=== PATIENT | male | born 1970 | race Caucasian/White ===

== ENCOUNTER 2022-04-11 16:59 | Emergency (ER) | payer BC, SELFPAY ==
[2022-04-11 17:19] VITALS: BP 135/87; PULSE 120; RESP 18; TEMP 36.9; O2SAT 98; BMI 26.7
--- NOTE | 2022-04-11 17:23 | HMH.EDUTC ---
[facility] [place] Impression: Yeast infection of the skin Disposition: Home, Self-Care Condition on Discharge: Good Instructions: DI for Yeast Infection-Skin, Nystatin Topical Additional Instructions: Keep the affected area as clean and dry as you can for the next several days. Follow up with your regular doctor. Take the diflucan as directed and apply the topical nystatin as directed. Soak in a warm bath tub of water at least once per day for the next several days. Make sure your dry off thoroughly after you get out. GO TO THE ER FOR ANY WORSENING SYMPTOMS Prescriptions: Fluconazole [Diflucan 150mg tab] 150 mg PO ONCE #1 tab Transmission Status: Received by [facility] #[id number] Nystatin [Nystatin Cr 100,000 Units/GM 30GM] 1 applicatio TP BID 14 Days #1 gm Transmission Status: Received by [facility] #[id number] Referrals: Conner Cid MD [Primary Care Provider] - Time of Disposition: 17:28 Medical Decision Making - Medical Records Medical records reviewed: No: I reviewed the patient's medical records. - Celestine Inquiry Pt receiving controlled substance: No Vital Signs: 04/11/22 17:19 04/11/22 17:31 Temperature 98.5 F 98.5 F Temperature Source Oral Pulse Rate 120 H Pulse Rate [Left Radial] 120 H Respiratory Rate 18 18 Blood Pressure 135/87 Blood Pressure [Right Arm] 135/87 Blood Pressure Mean [Right Arm] 103 02 Sat by Pulse Oximetry 98 - Lab Data Lab results reviewed: Yes: I reviewed the patient's lab results. [facility] [place] - General Stated complaint: PENIS RED AND SWOLLEN Time Seen by Provider: 04/11/22 17:23 Description of Symptoms (Recalled from Triage Doc. by RN): patient comes in for red and swollen penis. patient states that he noticed this morning. HEENT Symptoms (Recalled from RN notes): No Resp Symptoms (Recalled from RN notes): No Skin Symptoms (Recalled from RN notes): Yes MS Symptoms (Recalled from RN notes): No Functional Status (Recalled from RN notes): wnl - History of Present Illness Provider Complaint: He states that for the past 2 days he has had irritation beneath his foreskin on his penis. He states that he has been working outside on these very hot days and sweating a lot. He thinks that this might have irritated him. He denies any dysuria. He denies any pain or other complaints. He is not a diabetic. - Related Data Previous Rx's Medication Instructions Recorded cephALEXin [Keflex 500mg Cap] 500 mg PO Q6H 7 Days #28 cap 01/14/20 Fluconazole [Diflucan 150mg tab] 150 mg PO ONCE #1 tab 04/11/22 Nystatin [Nystatin Cr 100,000 1 applicatio TP BID 14 Days #1 gm 04/11/22 Units/GM 30GM] Allergies Allergy/AdvReac Type Severity Reaction Status Date / Time No Known Allergies Allergy Verified 04/11/22 17:21 - Worker's Comp Is this a Worker's Comp case?: No [facility] History - Hepatitis A Screen Attestation statement:: This patient has been screened for Hepatitis A risk factors. I have reviewed the patient's past medical history: Yes - Social History Smoking Status: Current every day smoker Tobacco Type: cigarettes # Packs/Day (cigarettes): 1 Alcohol Intake: never Occupational Status: other ROS Obtained: Yes All systems reviewed & no additional complaints - Constitutional Constitutional: Denies chills, Denies fever(s) - Eyes Eyes: Denies eye discharge - ENT Ears, Nose, Mouth, and Throat: Denies sore throat - Cardiovascular Cardiovascular: Denies chest pain - Respiratory Respiratory: Denies chest congestion, Denies cough - Gastrointestinal Gastrointestingal: Denies: abdominal pain, cramping, diarrhea, nausea, vomiting - Genitourinary Male Genitourinary: Reports as per HPI - Musculoskeletal Musculoskeletal: Denies joint pain - Integumentary/Breasts Skin/Breast: Reports as per HPI Physical Exam - General General appearance: alert, in no apparent distress - Head Head exam: atrau
[2022-04-11 17:31] VITALS: BP 135/87; PULSE 120; RESP 18; TEMP 36.9
== END 2022-04-11 17:32 | disposition home or self-care (01) ==
PROVIDERS: Emergency Provider Nurse Practitioner Family; PCP Internal Medicine Adolescent Medicine
DX: B37.2 Candidiasis of skin and nail (principal); N48.89 Other specified disorders of penis
CPT/HCPCS: 99212; G0463

== ENCOUNTER 2022-12-09 15:38 | Emergency (ER) | payer BC, SELFPAY ==
[2022-12-09] VITALS (7 sets, daily range): BP systolic 158–202; BP diastolic 86–121; PULSE 89–120; RESP 15–20; TEMP 36.8–36.9; O2SAT 95–98; BMI 25.9
--- NOTE | 2022-12-09 15:48 | CT_ITS ---
PROCEDURE INFORMATION: Exam: CT Head Without Contrast Exam date and time: 12/09/2022 4:10 PM Age: 52 years old Clinical indication: Dizziness TECHNIQUE: Imaging protocol: Computed tomography of the head without contrast. Radiation optimization: All CT scans at this facility use at least one of these dose optimization techniques: automated exposure control; mA and/or kV adjustment per patient size (includes targeted exams where dose is matched to clinical indication); or iterative reconstruction. Other protocol: This patient has received 0 known CTs and 0 known cardiac nuclear medicine studies in the 12 months prior to the current study. COMPARISON: No relevant prior studies available. FINDINGS: Brain: Normal. No hemorrhage. Unremarkable white matter. No mass effect. Cerebral ventricles: No ventriculomegaly. Paranasal sinuses: Right maxillary sinus congestion. Mastoid air cells: Visualized mastoid air cells are well aerated. Bones/joints: Unremarkable. No acute fracture. Soft tissues: Unremarkable. IMPRESSION: No acute intracranial abnormality. Maxillary sinus congestion.
[2022-12-09 15:56] LABS: Basophils # 0.1 K/mm3 (0-0.2); Basophils % 1.8 % (0.1-2.0); Eosinophils # 0.2 K/mm3 (0.0-0.4); Eosinophils % 2.3 % (0.1-12.0); Hematocrit 46.7 % (42.0-52.0); Hemoglobin 15.8 g/dL (14.1-18.0); Lymphocytes # 2.5 K/mm3 (0.7-4.5); Lymphocytes % 33.8 % (10-50); Mean Corpuscular Volume 97.1 fl (80-94); Mean Platelet Volume 8.2 fl (7.4-10.4); Monocytes # 0.5 K/mm3 (0.1-1.0); Monocytes % 6.8 % (1.7-9.3); Neutrophils # 4.1 K/mm3 (1.8-7.8); Neutrophils % 55.2 % (37.0-80.0); Platelet Count 254 K/mm3 (142-424); Red Cell Distribution Width 12.8 % (11.5-17.5); White Blood Count 7.4 K/mm3 (4.8-10.8)
[2022-12-09 16:01] LABS: Chloride 106 mmol/L (98-107); Potassium 4.1 mmoL/L (3.5-5.1); Sodium 141 mmol/L (136-145)
[2022-12-09 16:03] LABS: Blood Urea Nitrogen 13 mg/dl (9-20)
[2022-12-09 16:04] LABS: Alanine Aminotransferase 45 U/L (12-78); Albumin Level 4.3 g/dl (3.5-5.0); Albumin/Globulin Ratio 1.2 (1.1-1.8); Alkaline Phosphatase 103 U/L (38-126); Anion Gap 9.1 mEq/L (5-15); Aspartate Amino Transferase 57 U/L (17-59); Bilirubin,Total 0.3 mg/dl (0.2-1.3); Calcium 9.1 mg/dl (8.4-10.2); Carbon Dioxide 30 mmol/L (22.0-30.0); Creatinine Clearance Estimated 107 mL/min (50-200); Estimated Glomerular Filt Rate 101 ml/min (>60); GFR (African American) 122 ML/MIN (>60); Globulin 3.6 g/dL (1.3-3.2); Glucose 87 mg/dl (74-100); Total Protein,Serum 7.9 g/dl (6.3-8.2)
[2022-12-09 16:14] LABS: Microscopic, Urine URINE MICROSCOPIC (MICROSCOPIC)
--- NOTE | 2022-12-09 16:14 | PC.NURSE ---
PT JUST ARRIVED BACK TO ROOM FROM CT VIA WHEELCHAIR
[2022-12-09 16:18] LABS: Appearance,Urine CLEAR (Clear); Bilirubin,Urine Negative (Negative); Blood, Urine Negative (Negative); Color,Urine YELLOW (Yellow); Glucose,Urine (UA) Negative (Negative); Ketones,Urine Negative (Negative); Leukocyte Esterase,Urine Negative (Negative); Nitrate,Urine Negative (Negative); Protein,Urine Negative (Negative); Specific Gravity, Urine 1.025 (1.005-1.030)
[2022-12-09 16:20] LABS: Troponin I < 0.01 ng/ml (0.00-0.034)
[2022-12-09 16:41] LABS: Squamous Epithelial Cell,Urine Occasional #/hpf (0-5); WBC,Urine Occasional #/hpf (0-3)
--- NOTE | 2022-12-09 16:55 | ECG_ITS ---
APPROVED REPORT Exam: Resting ECG HR:107 bpm ECG Measurements Heart Rate 107 AXES WV 120 P 72 QRSd 105 QRS 73 QT 337 T 72 QTc 400 Conclusion SINUS TACHYCARDIA POSSIBLE LEFT ATRIAL ENLARGEMENT [-0.1mV P-WAVE IN V1/V2] INCOMPLETE RIGHT BUNDLE BRANCH BLOCK [90+ ms QRS DURATION, TERMINAL R IN V1/V2, 40+ ms S IN I/aVL/V4/V5/V6] ABNORMAL RHYTHM ECG UNCONFIRMED REPORT Electronically signed by : Conner Cid MD 12/10/2022 18:53:17
--- NOTE | 2022-12-09 17:01 | PC.NURSE ---
PT STATES NO COMPLAINTS AT THIS TIME, AT BEDSIDE
[2022-12-09 17:05] LABS: Chol/HDL Ratio 3.2 (1-3.5); Cholesterol 167 mg/dl (140-200); HDL Cholesterol 53 mg/dl (40-60); Triglycerides 122 mg/dl (30-150); VLDL Cholesterol 24 mg/dL (0-40)
[2022-12-09 17:16] LABS: Direct LDL Cholesterol 88.79 mg/dL (100-129)
--- NOTE | 2022-12-09 17:16 | HMH.EDGENADL ---
Discharge Plan Disposition Patient Disposition: Left Against Medical Advice Condition: Good Prescriptions Prescriptions: New metoprolol tartrate 50 mg tablet 50 mg PO Q12H Qty: 60 0RF aspirin [Adult Aspirin Regimen] 81 mg tablet,delayed release (DR/EC) 81 mg PO DAILY Qty: 30 0RF Referrals Follow up/Referrals: Zahraa Sheehan MD [Staff Physician] - See instructions Conner Cid MD [Primary Care Provider] - See instructions Clinical Impressions Clinical Impression: Transient ischemic attack, Hypertension Print Language Print Language: Moldovan Discharge ED Provider: Eddie Rodríguez General Adult HPI General Chief complaint: Dizziness Stated complaint: weakness Time Seen by Provider: 12/09/22 17:23 Mode of Arrival: EMS Source of Information: Patient Limitations: No Limitations Description of Symptoms (Recalled from ER Triage Doc. by RN): Pt by EMS called by who reports he was acting dizzy like he was going to fall off the porch ; pt denies c/o and doesn't have PCP; hypertensive en route 210/121, NAD, GCS15 History of Present Illness HPI narrative: Patient presents to the emergency department after he was reportedly at home and was sitting on the stairs of his front patio when his noticed that he had slurred speech and right-sided facial droop which happened just prior to arrival. The states that this has completely resolved. She states that he was slightly confused for short period of time. Denies any previous history of CVA or seizure activity. Patient states that he does not go to a physician and is not on any medication at this time. Denies any recent fever, chills, cough, congestion, nausea or vomiting. Related Data Previous Rx's Medication Instructions Recorded aspirin 81 mg tablet,delayed 81 mg PO DAILY #30 tabs 12/09/22 release (Adult Aspirin Regimen) metoprolol tartrate 50 mg tablet 50 mg PO Q12H #60 tabs 12/09/22 Allergies Allergy/AdvReac Type Severity Reaction Status Date / Time No Known Allergies Allergy Verified 04/11/22 17:[address] [facility] Disclaimer: The information contained in this section may have been updated after the patient was seen, as this information can be updated by other users. Social History Smoking Status: Current every day smoker tobacco type: cigarettes packs per day: 1 alcohol intake: never current occupational status: other Travel in the last 8 weeks: None ROS Obtained: Yes All systems reviewed & no additional complaints except as documented Neurologic Neurologic: Reports other (Slurred speech, right-sided facial droop) Physical Exam General General appearance: alert and in no apparent distress Comment: Chronically ill-appearing Head Head exam: atraumatic and normocephalic Eye Eye exam: Present normal appearance, PERRL and EOMI Respiratory Respiratory exam: Present normal lung sounds bilaterally and other (Coarse diminished bilateral breath sounds) Cardiovascular Cardiovascular exam: Present tachycardia and normal heart sounds Abdominal Exam Abdominal exam: Present soft and diminished bowel sounds Extremities Exam Extremities exam: Present normal inspection and full ROM Neurological Exam Neurological exam: Present alert, oriented X3 and CN II-XII intact Psychiatric Psychiatric exam: Present normal affect and normal mood Skin Skin exam: Present warm, dry and intact Medical Decision Making Celestine Inquiry Pt receiving controlled substance: No Celestine was queried for this patient: No Vital Signs: 12/09/22 15:41 12/09/22 15:47 12/09/22 16:30 Temperature 98.5 F Temperature Source Oral Pulse Rate 89 105 H Pulse Rate [Right Radial] 120 H Respiratory Rate 18 19 20 Blood Pressure 173/86 H 173/86 H Blood Pressure [Right Arm] 202/121 H Blood Pressure Mean 118 Blood Pressure Mean [Right Arm] 148 Blood Pressure Source [Right Arm] Automatic Cuff Blood
== END 2022-12-09 17:42 | disposition left against medical advice (07) ==
PROVIDERS: Emergency Provider Emergency Medicine; PCP Internal Medicine Adolescent Medicine
DX: G45.9 Transient cerebral ischemic attack, unspecified (principal); I10 Essential (primary) hypertension; F17.210 Nicotine dependence, cigarettes, uncomplicated
CPT/HCPCS: 70450; 80053; 80061; 81001; 84484; 85025; 93005; 99285

== ENCOUNTER 2022-12-09 21:17 | Emergency (ER) | payer BC, SELFPAY ==
[2022-12-09 21:20] VITALS: BP 218/131; PULSE 85; RESP 19; TEMP 36.8; O2SAT 98; BMI 23.8
[2022-12-09 21:42] VITALS: BP 210/122; PULSE 81; RESP 19; O2SAT 97
--- NOTE | 2022-12-09 21:51 | CT_ITS ---
PROCEDURE INFORMATION: Exam: CTA Head With Contrast, Arteriography Exam date and time: 12/09/2022 10:43 PM Age: 52 years old Clinical indication: Stroke-like symptoms; Altered mental status/memory loss; Additional info: Stroke work up TECHNIQUE: Imaging protocol: Computed tomographic angiography of the head with contrast. Exam focused on the arteries. 3D rendering (Not supervised by radiologist): MIP and/or 3D reconstructed images were created by the technologist. Radiation optimization: All CT scans at this facility use at least one of these dose optimization techniques: automated exposure control; mA and/or kV adjustment per patient size (includes targeted exams where dose is matched to clinical indication); or iterative reconstruction. Contrast material: ISOVUE; Contrast volume: 100 ml; Contrast route: INTRAVENOUS (IV); Other protocol: This patient has received 2 known CTs and 0 known cardiac nuclear medicine studies in the 12 months prior to the current study. COMPARISON: CT HEAD/BRAIN WO CON 12/09/2022 4:10 PM FINDINGS: ANTERIOR CIRCULATION: Right internal carotid artery: Gradual reconstitution of the right sided internal carotid artery with good distal flow. Moderate atherosclerotic disease of the right sided cavernous internal carotid artery the results in stenosis measuring 70%. There is distal flow. Right middle cerebral artery: No occlusion or significant stenosis. No aneurysm. Right anterior cerebral artery: No occlusion or significant stenosis. No aneurysm. Left internal carotid artery: Intracranial segment is patent with no significant stenosis. No aneurysm. Left middle cerebral artery: No occlusion or significant stenosis. No aneurysm. Left anterior cerebral artery: No occlusion or significant stenosis. No aneurysm. POSTERIOR CIRCULATION: Right vertebral artery: No occlusion or significant stenosis. No aneurysm. Left vertebral artery: No occlusion or significant stenosis. No aneurysm. Basilar artery: No occlusion or significant stenosis. No aneurysm. Right posterior cerebral artery: No occlusion or significant stenosis. No aneurysm. Left posterior cerebral artery: No occlusion or significant stenosis. No aneurysm. Brain: No definite mass, mass effect, or midline shift. Cerebral ventricles: No ventriculomegaly. Bones/joints: Unremarkable. No acute fracture. Soft tissues: Unremarkable. IMPRESSION: 1. Gradual reconstitution of the right sided internal carotid artery with good distal flow. This is secondary to a severe stenosis in the neck. 2. Moderate atherosclerotic disease of the right sided cavernous internal carotid artery the results in stenosis measuring 70%. There is distal flow. 3. The remainder of the vascular structures are unremarkable. There is no other significant stenosis. There is no occlusion or aneurysm.
--- NOTE | 2022-12-09 21:51 | CT_ITS ---
PROCEDURE INFORMATION: Exam: CTA Neck With Contrast Exam date and time: 12/09/2022 10:43 PM Age: 52 years old Clinical indication: Stroke-like symptoms; Altered mental status/memory loss; Additional info: Stroke work up TECHNIQUE: Imaging protocol: Computed tomographic angiography of the neck with contrast. 3D rendering (Not supervised by radiologist): MIP and/or 3D reconstructed images were created by the technologist. Radiation optimization: All CT scans at this facility use at least one of these dose optimization techniques: automated exposure control; mA and/or kV adjustment per patient size (includes targeted exams where dose is matched to clinical indication); or iterative reconstruction. Contrast material: ISOVUE; Contrast volume: 100 ml; Contrast route: INTRAVENOUS (IV); Other protocol: This patient has received 2 known CTs and 0 known cardiac nuclear medicine studies in the 12 months prior to the current study. COMPARISON: CT HEAD/BRAIN WO CON 12/09/2022 4:10 PM FINDINGS: Right common carotid artery: No stenosis. No dissection or occlusion. Right internal carotid artery: Severe atherosclerotic disease of the right sided internal carotid artery bulb the results in near occlusion. There is trace distal flow. Right external carotid artery: No occlusion or stenosis of the origin. Left common carotid artery: No stenosis. No dissection or occlusion. Left internal carotid artery: Moderate atherosclerotic disease within left-sided internal carotid artery bulb that results in stenosis measuring 50%. There is good distal flow. Left external carotid artery: No occlusion or stenosis of the origin. 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 There is trace distal reconstitution. Left vertebral artery: No stenosis. No dissection or occlusion. Soft tissues: Normal. No significant soft tissue swelling. Bones/joints: No acute fracture. IMPRESSION: 1. 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 There is trace distal reconstitution. 2. Severe atherosclerotic disease of the right sided internal carotid artery bulb the results in near occlusion. There is trace distal flow. 3. Moderate atherosclerotic disease within left-sided internal carotid artery bulb that results in stenosis measuring 50%. There is good distal flow. 4. The remainder of the vascular structures are unremarkable. There is no other significant stenosis. There is no occlusion or aneurysm. REFERENCES: NASCET CRITERIA. The degree of stenosis in the cervical segment of the internal carotid artery is based on NASCET criteria. Normal is no stenosis. Mild is less than 50% stenosis. Moderate is 50-69% stenosis. Severe is 70% to 99% stenosis. Total occlusion is no detectable patent lumen.
--- NOTE | 2022-12-09 21:52 | PC.NURSE ---
notified ER MD of pt bp and about previous ER Visit today, gave verbal orders on pt
[2022-12-09 22:00] VITALS: BP 200/117; PULSE 80; O2SAT 97
[2022-12-09 22:30] VITALS: BP 190/114; PULSE 79; O2SAT 97
--- NOTE | 2022-12-09 22:34 | PC.NURSE ---
Rounded on patient, no needs at this time.
[2022-12-09 23:00] VITALS: BP 207/114; PULSE 80; O2SAT 97
--- NOTE | 2022-12-09 23:06 | PC.NURSE ---
spoke with ANGELICA
[2022-12-09 23:30] VITALS: BP 194/114; PULSE 79; O2SAT 97
[2022-12-10] VITALS: BP 189/109; PULSE 73; O2SAT 97
--- NOTE | 2022-12-10 00:01 | PC.NURSE ---
Rounded on patient , patient voiced no concerns at this time.
[2022-12-10 00:30] VITALS: BP 188/116; PULSE 75; O2SAT 95
--- NOTE | 2022-12-10 00:43 | HMH.EDGENADL ---
Discharge Plan Disposition Patient Disposition: Home, Self-Care Prescriptions Prescriptions: No Action aspirin [Adult Aspirin Regimen] 81 mg tablet,delayed release (DR/EC) 81 mg PO DAILY metoprolol tartrate 50 mg tablet 50 mg PO Q12H Referrals Follow up/Referrals: Conner Cid MD [Primary Care Provider] - See instructions Activity Restrictions/Add. Instructions Additional Instructions/Restrictions: See Dr. Becerra at 9:00am (saturday) for follow up. Clinical Impressions Clinical Impression: Transient ischemic attack, Hypertension, Vascular disease Instructions Patient Instructions: DI for Malignant Hypertension Discharge ED Provider: Mynor (ED)Micheal General Adult HPI General Chief complaint: PAIN Stated complaint: pin stroke earlier ER visit Time Seen by Provider: 12/09/22 23:00 Mode of Arrival: Ambulatory Source of Information: Patient Limitations: No Limitations Description of Symptoms (Recalled from ER Triage Doc. by RN): 52 M was seen here at this ER earlier and left AMA. Patient reports he has changed his mind and would like to be admitted like he was going to be earlier. Patient has no new complaints. History of Present Illness HPI narrative: pt in the ed earlier with possible tia and left ama - pt with no sx at this time and at baseline Onset (ago): hour(s) Related Data Home Medications Medication Instructions Recorded Confirmed aspirin 81 mg tablet,delayed 81 mg PO DAILY Heart 12/09/22 12/09/22 release (Adult Aspirin Regimen) metoprolol tartrate 50 mg tablet 50 mg PO Q12H High blood pressure 12/09/22 12/09/22 Allergies Allergy/AdvReac Type Severity Reaction Status Date / Time No Known Allergies Allergy Verified 04/11/22 17:21 [facility] Disclaimer: The information contained in this section may have been updated after the patient was seen, as this information can be updated by other users. Social History Smoking Status: Current every day smoker tobacco type: cigarettes packs per day: 1 alcohol intake: never current occupational status: other Travel in the last 8 weeks: None ROS Obtained: Yes All systems reviewed & no additional complaints except as documented Physical Exam General General appearance: alert Head Head exam: normocephalic Eye Eye exam: Present PERRL and EOMI ENT ENT exam: Present mucous membranes moist Neck Neck exam: Present trachea midline and other (no def bruit) Respiratory Respiratory exam: Absent respiratory distress Cardiovascular Cardiovascular exam: Present regular rate and systolic murmur Abdominal Exam Abdominal exam: Present soft Extremities Exam Extremities exam: Present full ROM Neurological Exam Neurological exam: Present alert, oriented X3 and CN II-XII intact; Absent motor sensory deficit Psychiatric Psychiatric exam: Present normal affect Skin Skin exam: Absent rash Medical Decision Making Medical Records Medical records reviewed: Yes I reviewed the patient's medical records. Celestine Inquiry Pt receiving controlled substance: No Vital Signs: 12/09/22 21:20 12/09/22 21:42 12/10/22 00:52 Temperature 98.3 F Temperature Source Oral Pulse Rate 81 Pulse Rate [Left] 85 Respiratory Rate 19 19 Blood Pressure 210/122 H 210/110 H Blood Pressure [Right Arm] 218/131 H Blood Pressure Mean [Right Arm] 160 Blood Pressure Source Manual Cuff/ Auscultation Manual Cuff/ Auscultation Blood Pressure Source [Right Arm] Automatic Cuff Blood Pressure Position Sitting Sitting Blood Pressure Position [Right Arm] Sitting 02 Sat by Pulse Oximetry 98 97 Oxygen Delivery Method Room Air Room Air Lab Data Lab results reviewed: Yes I reviewed the patient's lab results. Orders (Tests/Meds): ED MEDICATIONS Generic Name Dose Route Start Last Admin Trade Name Freq PRN Reason Stop Dose Admin Sodium Chloride 10 ml 12/09/22 21:51 Sodium
--- NOTE | 2022-12-10 00:51 | PC.NURSE ---
Elevated BP reported to . Verbal orders for 0.1mg clonidine PO at this time.
[2022-12-10 00:52] VITALS: BP 210/110
[2022-12-10 01:00] VITALS: BP 197/113; PULSE 70; O2SAT 97
[2022-12-10 01:22] VITALS: BP 181/110; PULSE 68; RESP 16; TEMP 36.8; O2SAT 98
== END 2022-12-10 01:22 | disposition home or self-care (01) ==
PROVIDERS: Emergency Provider Emergency Medicine; PCP Internal Medicine Adolescent Medicine
DX: G45.9 Transient cerebral ischemic attack, unspecified (principal); I73.9 Peripheral vascular disease, unspecified; I10 Essential (primary) hypertension; F17.210 Nicotine dependence, cigarettes, uncomplicated
CPT/HCPCS: 70496; 70498; 93005; 99285; Q9967

== ENCOUNTER → 2023-01-17 06:21 | Outpatient (CLI) | payer BC, SELFPAY ==
--- NOTE | 2023-01-17 06:22 | CA_ITS ---
APPROVED REPORT EXAM: Comprehensive 2D, Doppler, and color-flow Echocardiogram [employer]: Tonia Mulligan CRT Ht: 5 ft 5 in Wt: 139lbs BSA: 1.70 BP: 145/81 mmHg Indications: Hyperlipidemia, Hypertension/HDD, TIA hx, smoker 2D Dimensions LVOT 1.79 cm (M/F) 1.5-2.5 LA Volume 36.70 mL LA Volume Index 21.10 mL/m2 (M/F) 16-34 M-Mode Dimensions RVDd 2.31 cm (0.9-2.6) LA Diam 3.44 cm (1.9-4.0) LVDd 4.66 cm (3.5-5.7) Ao Diam 3.80 cm (2.0-3.7) LVDs 3.31 cm (3.5-5.7) IVSd 1.06 cm (0.6-1.1) PWd 0.44 cm (0.6-1.1) EF (Teich) 55.60% FS 29.00% EDV (Teich) 100.30 mL TAPSE 1.33 (<1.7) ESV (Teich) 44.50 mL LV Diastology E Decel Time 183.00 (160-240 msec) E/A Ratio 0.81 MED E' 7.30 (< 7 cm/sec) MED A' 8.00 cm/s E'/MED E' Ratio 10.47 (>14) LAT E' 6.70 (<10 cm/sec) LAT A' 8.80 cm/s E/LAT E' Ratio 11.40 (>14) Aortic Valve AO Peak GR. 5.90 mmHg Mitral Valve MV A Velocity 95.00 (40-130 cm/s) E/A Ratio 0.81 MV Decel. Time 183.00 (160-240 ms) Pulmonary Valve PV Peak Velocity 123.00 (50-150 cm/s) Tricuspid Valve TR P. Velocity 193.00 cm/s RAP Estimate 10.00 mmHg RVSP 25.00 mmHg Left Ventricle Left atrium is mildly enlarged, left ventricle is normal size mild concentric left ventricular hypertrophy, estimated ejection fraction 55% with no regional wall motion abnormality, grade 1 diastolic dysfunction seen without tissue Doppler evidence of raise left atrial pressure. Right Ventricle Right atrium and right ventricular normal size and contractility. Aortic Valve Aortic valve is minimally thickened fibrosed there is no aortic stenosis aortic insufficiency. Mitral Valve Mitral valve is grossly normal, there is trace mitral regurgitation. Tricuspid Valve Tricuspid grossly normal, there is trace tricuspid regurgitation, tricuspid regurgitation jet velocity is inadequate for calculation of the right ventricular systolic pressure. Pulmonic Valve Pulmonic valve is poorly visualized. Great Vessels Aortic root normal size. Inferior vena cava is normal size with normal inspiratory collapse. Pericardium No significant pericardial effusion noted. Conclusion 1. Normal left ventricular size, mild concentric left ventricular hypertrophy, estimated ejection fraction 55% with no regional wall motion abnormality, grade 1 diastolic dysfunction seen without tissue Doppler evidence of raised left atrial pressure. 2. Trace mitral and tricuspid regurgitation. 3. No significant pericardial effusion noted. 4. Inferior vena cava is normal size with normal inspiratory collapse. Electronically signed by : Sen Rainey MD 01/17/2023 17:37:01
--- NOTE | 2023-01-17 06:22 | CA_ITS ---
FINAL REPORT TECHNIQUE: Grayscale, color Doppler and duplex Doppler ultrasound of the kidneys, aorta and renal arteries was performed. Multiple velocities were measured. CLINICAL HISTORY: HTN,SMOKER COMPARISON: None FINDINGS: Aorta velocity: 46 cm/sec Right kidney: 11.4 cm. No evidence of hydronephrosis or mass. Right intrarenal RI: 0.55-0.66 Right renal artery velocity: 252 cm/sec. Right RAR (Renal artery-Aortic Ratio): 5.45 Left Kidney: 10.1 cm. No evidence of hydronephrosis or mass. Left intrarenal RI: 0.39-0.65 Left renal artery velocity: 259 cm/sec. Left RAR (Renal Artery-Aortic Ratio): 5.61 IMPRESSION: Greater than 60% stenosis of the bilateral renal arteries. CT angiogram or postcontrast MR angiogram would be more sensitive for evaluation of possible renal artery stenosis. Reviewed, Interpreted and Dictated by Trisha Etienne MD Transcribed by Jenny Quinonez Authenticated and [facility]
--- NOTE | 2023-01-17 06:22 | CA_ITS ---
APPROVED REPORT Exam: Pharmacologic Technologist: Verena Zamora, Ht: 5 ft 5 in Wt: 139 lbs BSA: 1.70 m2 HR: 67 bpm BP: 173/95 mmHg Medical History Medications: Aspirin,,,,, Metoprolol Tartrate,,,,, Atorvastastin,,,,, Stress Test Details Test: LEXISCAN HR Resting HR: 73 bpm Max Heart Rate (APMHR): 167.329012 bpm Max HR Achieved: 108 bpm Target HR (85% APMHR): 141.271529 bpm % of APMHR: 64.67 Recovery HR: 95 bpm BP Resting BP: 173/95 mmHg Max BP: 178/104 mmHg Recovery BP: 175.0/113.0 mmHg ECG Resting ECG: NSR, normal early repolarization changes Clinical Exercise duration: 04:01 min Highest Stage Achieved: Exercise capacity: 1.0 METs Stress ECG Conclusion Symptoms: stomach pain, nausea, leg discomfort. No CP. Arrhythmias/Ectopy: None ST-T Changes: No significant changes. Conclusion: Non-disgnostic Lexiscan stress. Myoview images reported separately. Pt advised to monitor BP at home & contact Dr. Hernan clarke if stays elevated. Test Summary REST . . . . . . . Resting REST 05:05 . . 73 . 173/ 95 . . Stage 1 01:00 . . 103 . . . . Stage 2 01:00 . . 105 . 165/ 96 . . Stage 3 01:00 . . 103 . 151/ 96 . . Stage 4 01:00 . . 98 . 172/ 95 . . Stage 4 01:01 . . 98 . 172/ 95 . Stop exercise at 04:01 RECOVERY 01:00 . . 94 . . . . RECOVERY 02:00 . . 96 . 178/104 . . RECOVERY 03:00 . . 96 . 178/104 . . RECOVERY 04:00 . . 95 . 175/113 . . RECOVERY 05:00 . . 96 . 175/113 . . RECOVERY 05:13 . . 92 . 175/113 . . Electronically signed by : Sen Rainey MD 01/17/2023 16:46:16
--- NOTE | 2023-01-17 06:22 | NM_ITS ---
APPROVED REPORT Exam: Nuclear Stress Test Indication: HTN..current smoker Patient Location: Outpatient Stress Tech: Verena Akbar [place] Tech:Talia Armando CAPRICERuben RT(R)(N) Ht: 5 ft 5 in Wt: 156 lbs HR: 73 bpm BP: 173/95 mmHg BSA: 1.78 m2 TID: 1.06 BMI: 25.9 History: HTN..current smoker Procedure: Patient received 0.4 mg of intravenous Lexiscan, resting heart rate 73 bpm, resting blood pressure 173/95 mmHg, with Lexiscan maximum heart rate achieved was 108 bpm which is Less than 85 % of the maximum predicted heart rate and blood pressure was 178/104 mmHg. With Lexiscan, patient denied any complaint of chest pain. Electrocardiogram Resting electrocardiogram showed sinus rhythm, with Lexiscan there is less than 1.[address] segment depression noted from the baseline EKG. The EKG portion of the Lexiscan is nondiagnostic. Cardiac Stress and Resting SPECT Images: Cardiac Stress and Resting SPECT images were obtained using technetium 99m Myoview 31.6 mCi stress and 10.63 mCi at rest. Gated SPECT analysis of segmental wall motion and calculation of the ejection fraction also done. Prone images were also obtained. Cardiac stress and rest respectively show uniform myocardial activity without segmental perfusion abnormality, computer derived ejection fraction is 44% with no regional wall motion abnormality. Conclusion: 1. The EKG portion of the Lexiscan is nondiagnostic. 2. No scintigraphic evidence of reversible ischemia seen, computer derived ejection fraction 44% with no regional wall motion abnormality, right ventricle is normal size and contractility. 3. Normal myocardial perfusion imaging except for low ejection fraction of 44%. Electronically signed by : Sen Rainey MD 01/17/2023 16:59:58
--- NOTE | 2023-01-17 06:22 | CT_ITS ---
FINAL REPORT TECHNIQUE: Axial CT images of the chest were obtained without contrast. Low-dose protocol was utilized. This study was performed with techniques to keep radiation doses as low as reasonably achievable (ALARA). Individualized dose reduction techniques using automated exposure control or adjustment of mA and/or kV according to the patient's size were employed. CLINICAL HISTORY: lung cancer screening cuurent smoker 1/2ppd x 35 years COMPARISON: None FINDINGS: CT CHEST WITHOUT, LOW DOSE SCREENING CT Di Vol: 2.90 mGy DLP: 107.33 mGy*cm There is no axillary, mediastinal, or hilar adenopathy. The heart size is normal. There are prominent coronary artery calcifications. There is no pleural or pericardial effusion. The lung windows show no suspicious mass or nodule. The lungs are clear. Limited images of the upper abdomen demonstrate . IMPRESSION: LR Category 1S: 12 month follow-up low-dose chest CT is recommended. Modifier S: Prominent coronary artery calcifications. Reviewed, Interpreted and Dictated by Trisha Etienne MD Transcribed by Jenny Quinonez Authenticated and [facility]
== END ==
PROVIDERS: PCP Internal Medicine Adolescent Medicine; Visit Provider Internal Medicine
DX: I10 Essential (primary) hypertension (principal); R09.89 Other specified symptoms and signs involving the circulatory and respiratory systems; G45.9 Transient cerebral ischemic attack, unspecified; I65.23 Occlusion and stenosis of bilateral carotid arteries; I99.9 Unspecified disorder of circulatory system; E78.5 Hyperlipidemia, unspecified; Z86.73 Personal history of transient ischemic attack (TIA), and cerebral infarction without residual deficits; Z72.0 Tobacco use
CPT/HCPCS: 71271; 78452; 93017; 93306; 93976; A9502; J2785

== ENCOUNTER 2023-01-25 08:18 | Day surgery (SDC) | payer BC, OTHER, SELFPAY ==
[2023-01-25] VITALS (12 sets, daily range): BP systolic 151–207; BP diastolic 94–127; PULSE 77–89; RESP 16–20; O2SAT 95–100; BMI 23.3
--- NOTE | 2023-01-25 07:03 | IR_ITS ---
APPROVED REPORT Patient Location: Outpatient Conference Translator: CRISTOBAL El RT (R) PROCEDURES Bilateral selective renal angiography Bare-metal stent deployment to the proximal right renal artery Bare-metal stent deployment to the ostial proximal left renal artery INDICATION Bilateral renal artery stenosis, Abnormal renal duplex diagnosing bilateral severe renal artery stenosis, Renovascular hypertension Informed consent was obtained prior to the procedure. COMPLICATIONS None Estimated Blood Loss: Less than 10 mls TECHNIQUE One percent lidocaine used to anesthetize the right anterior aspect of the wrist. The right radial artery was accessed via the Seldinger technique. A 6 Bahraini sheath was placed in the right radial artery. 150 mg magnesium sulfate, 800 mcg of nitroglycerin, 1mg Lidocaine and 5000 U Heparin were given through the arterial sheath. A JR4 guide catheter was used to intubate each renal artery and perform selective angiography. At the end the diagnostic angiogram therapeutic heparin was administered giving a therapeutic ACT and a guide catheter was placed in the right renal artery followed by Choice PT extra-support wire. A 7 mm x 15 mm Herculink stent was deployed at 16 and then 24 alejandro reducing the severe stenosis to 0%. Poststenotic dilatation was present however the stent was not further dilated. The guide catheter was then placed in the inferior branch of the left renal artery and a Choice PT extra-support wire was placed distally. A 6 mm x 15 mm Herculink stent was deployed at 20 alejandro reducing the stenosis. A 7 mm x 15 mm balloon from the previous Herculink was then advanced and deployed at 20 alejandro to post dilate. Excellent angiograph results were obtained. At the end of the procedure the apparatus was removed the sheath was removed good hemostasis was achieved using TR banding patient was transferred to the postop putting in stable condition ANGIOGRAPHIC RESULTS Right renal artery singular and has a proximal eccentric 70% stenosis Left renal artery has a dual arterial supply. The superior branch which supplies 30% of the kidneys is normal while the inferior branch which supplies 70% of the kidney has an ostial 80% concentric stenosis IMPRESSION Severe bilateral renal artery stenosis Successful percutaneous revascularization of the renal arteries as described above hemodynamically severe disease reduced to 0% with 2 bare-metal balloon mounted stents PLAN 1. Dual antiplatelet therapy for 1 month 2. Percocet 10 mg 1 p.o. every 8 hours as needed for discomfort. #12 will be dispensed 3. Tobacco cessation 4. Risk factor modification Electronically signed by : Cole Becerra MD 01/25/2023 12:46:40
[2023-01-25 08:54] LABS: MANUAL DIFFERENTIAL MANUAL DIFFERENTIAL (MANUAL DIFF)
[2023-01-25 08:56] LABS: Basophils # 0.1 K/mm3 (0-0.2); Eosinophils # 0.2 K/mm3 (0.0-0.4); Eosinophils % 3.3 % (0.1-12.0); Hematocrit 45.5 % (42.0-52.0); Hemoglobin 14.9 g/dL (14.1-18.0); Lymphocytes # 1.5 K/mm3 (0.7-4.5); Mean Corpuscular HGB Conc 32.7 g/dL (31.8-35.4); Mean Corpuscular Hemoglobin 32.4 pg (27.0-31.2); Mean Platelet Volume 8.2 fl (7.4-10.4); Monocytes # 0.5 K/mm3 (0.1-1.0); Monocytes % 8.8 % (1.7-9.3); Neutrophils # 3.8 K/mm3 (1.8-7.8); Platelet Count 219 K/mm3 (142-424); Red Blood Count 4.59 M/mm3 (4.60-6.20); Red Cell Distribution Width 12.6 % (11.5-17.5); White Blood Count 6.1 K/mm3 (4.8-10.8)
[2023-01-25 08:58] LABS: Chloride 103 mmol/L (98-107); Sodium 138 mmol/L (136-145)
[2023-01-25 08:59] LABS: Potassium 4.1 mmoL/L (3.5-5.1)
[2023-01-25 09:02] LABS: Anion Gap 12.1 mEq/L (5-15); Blood Urea Nitrogen 10 mg/dl (9-20); Calcium 8.5 mg/dl (8.4-10.2); Carbon Dioxide 27 mmol/L (22.0-30.0); Creatinine Clearance Estimated 96 mL/min (50-200); Estimated Glomerular Filt Rate 101 ml/min (>60); GFR (African American) 122 ML/MIN (>60); Glucose 96 mg/dl (74-100)
[2023-01-25 09:32] LABS: Lymphocytes % 28 % (10-50); Monocytes % 10 % (2-9); Neutrophils % 62 % (42-76); Platelet Estimate Normal; RBC Morphology Normal; Total Cells Counted 100
[2023-01-25 13:36] LABS: CATHL Activated Clotting Time 383 SEC (74-125)
--- NOTE | 2023-01-25 15:19 | P.CONPHA_ITS ---
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
== END 2023-01-25 15:37 | disposition home or self-care (01) ==
PROVIDERS: PCP Internal Medicine Adolescent Medicine; Visit Provider Internal Medicine
DX: I70.1 Atherosclerosis of renal artery (principal); F17.210 Nicotine dependence, cigarettes, uncomplicated; I77.1 Stricture of artery; I15.0 Renovascular hypertension; I10 Essential (primary) hypertension; I65.23 Occlusion and stenosis of bilateral carotid arteries
CPT/HCPCS: 37236; 37237; 80048; 85007; 85014; 85018; 85048; 85049; 85347; 99152; 99153; C1725; C1769; C1876; J1644; Q9967

== ENCOUNTER → 2023-01-30 13:45 | Outpatient (CLI) | payer BC, OTHER, SELFPAY ==
[2023-01-30 14:43] LABS: Basophils # 0.1 K/mm3 (0-0.2); Basophils % 0.9 % (0.1-2.0); Eosinophils # 0.2 K/mm3 (0.0-0.4); Eosinophils % 3.3 % (0.1-12.0); Hematocrit 44.8 % (42.0-52.0); Hemoglobin 14.7 g/dL (14.1-18.0); Lymphocytes # 1.8 K/mm3 (0.7-4.5); Lymphocytes % 31.4 % (10-50); Mean Corpuscular HGB Conc 32.7 g/dL (31.8-35.4); Mean Corpuscular Hemoglobin 32.4 pg (27.0-31.2); Mean Platelet Volume 8.1 fl (7.4-10.4); Monocytes # 0.7 K/mm3 (0.1-1.0); Monocytes % 11.8 % (1.7-9.3); Neutrophils # 3.1 K/mm3 (1.8-7.8); Neutrophils % 52.7 % (37.0-80.0); Platelet Count 224 K/mm3 (142-424); Red Blood Count 4.53 M/mm3 (4.60-6.20); Red Cell Distribution Width 12.5 % (11.5-17.5); White Blood Count 5.9 K/mm3 (4.8-10.8)
[2023-01-30 15:17] LABS: Anion Gap 7.6 mEq/L (5-15); Blood Urea Nitrogen 14 mg/dl (9-20); Calcium 8.9 mg/dl (8.4-10.2); Carbon Dioxide 29 mmol/L (22.0-30.0); Chloride 101 mmol/L (98-107); Estimated Glomerular Filt Rate 118 ml/min (>60); GFR (African American) 143 ML/MIN (>60); Glucose 92 mg/dl (74-100); Potassium 4.6 mmoL/L (3.5-5.1); Sodium 133 mmol/L (136-145)
== END ==
PROVIDERS: PCP Internal Medicine Adolescent Medicine; Visit Provider Internal Medicine
DX: Z96.0 Presence of urogenital implants (principal)
CPT/HCPCS: 36415; 80048; 85025

== ENCOUNTER → 2023-02-20 09:16 | Outpatient (CLI) | payer BC, OTHER, SELFPAY ==
[2023-02-20 10:38] LABS: Chloride 97 mmol/L (98-107); Potassium 4.3 mmoL/L (3.5-5.1); Sodium 137 mmol/L (136-145)
[2023-02-20 10:41] LABS: Anion Gap 13.3 mEq/L (5-15); Blood Urea Nitrogen 5 mg/dl (9-20); Calcium 8.7 mg/dl (8.4-10.2); Carbon Dioxide 31 mmol/L (22.0-30.0); Estimated Glomerular Filt Rate 118 ml/min (>60); GFR (African American) 143 ML/MIN (>60); Glucose 78 mg/dl (74-100)
== END ==
PROVIDERS: PCP Internal Medicine Adolescent Medicine; Visit Provider Physician Assistant
DX: E78.5 Hyperlipidemia, unspecified (principal); I70.1 Atherosclerosis of renal artery; Z72.0 Tobacco use
CPT/HCPCS: 36415; 80048

== ENCOUNTER → 2023-08-08 10:19 | Outpatient (CLI) | payer BC, OTHER, SELFPAY ==
[2023-08-08 10:42] LABS: Basophils # 0.1 K/mm3 (0-0.2); Eosinophils # 0.2 K/mm3 (0.0-0.4); Eosinophils % 3.9 % (0.1-12.0); Hematocrit 47.8 % (42.0-52.0); Hemoglobin 16.4 g/dL (14.1-18.0); Lymphocytes # 2.1 K/mm3 (0.7-4.5); Mean Corpuscular HGB Conc 34.4 g/dL (31.8-35.4); Mean Corpuscular Hemoglobin 34.9 pg (27.0-31.2); Mean Corpuscular Volume 101.5 fl (80-94); Mean Platelet Volume 7.9 fl (7.4-10.4); Monocytes # 0.4 K/mm3 (0.1-1.0); Neutrophils # 2.5 K/mm3 (1.8-7.8); Neutrophils % 47.2 % (37.0-80.0); Platelet Count 187 K/mm3 (142-424); Red Blood Count 4.71 M/mm3 (4.60-6.20); Red Cell Distribution Width 12.8 % (11.5-17.5); White Blood Count 5.3 K/mm3 (4.8-10.8)
[2023-08-08 12:19] LABS: Alanine Aminotransferase 76 U/L (12-78); Albumin Level 4.7 g/dl (3.5-5.0); Alkaline Phosphatase 90 U/L (38-126); Anion Gap 13.6 mEq/L (5-15); Aspartate Amino Transferase 81 U/L (17-59); Bilirubin,Direct 0.3 mg/dl (0.0-0.4); Bilirubin,Indirect 0.5 mg/dL (0.0-0.9); Bilirubin,Total 0.8 mg/dl (0.2-1.3); Bilirubin,Unconjugated 0.5 mg/dL (0.0-1.1); Blood Urea Nitrogen 8 mg/dl (9-20); Calcium 9.4 mg/dl (8.4-10.2); Carbon Dioxide 28 mmol/L (22.0-30.0); Chloride 100 mmol/L (98-107); Chol/HDL Ratio 2.1 (1-3.5); Cholesterol 119 mg/dl (140-200); Estimated Glomerular Filt Rate 118 ml/min (>60); GFR (African American) 142 ML/MIN (>60); Glucose 83 mg/dl (74-100); HDL Cholesterol 58 mg/dl (40-60); Magnesium 2.1 mg/dl (1.6-2.3); Potassium 4.6 mmoL/L (3.5-5.1); Sodium 137 mmol/L (136-145); Total Protein,Serum 7.8 g/dl (6.3-8.2); Triglycerides 57 mg/dl (30-150); VLDL Cholesterol 11 mg/dL (0-40)
[2023-08-08 12:29] LABS: Direct LDL Cholesterol 57.46 mg/dL (100-129)
== END ==
PROVIDERS: PCP Internal Medicine Adolescent Medicine; Visit Provider Nurse Practitioner
DX: E78.5 Hyperlipidemia, unspecified (principal); I10 Essential (primary) hypertension; Z72.0 Tobacco use
CPT/HCPCS: 36415; 80048; 80061; 80076; 83735; 85025

== ENCOUNTER 2024-02-10 09:04 | Outpatient (CLI) | payer BC, OTHER, SELFPAY ==
[2024-02-10 09:22] LABS: Basophils # 0.1 K/mm3 (0-0.2); Basophils % 1.6 % (0.1-2.0); Eosinophils # 0.2 K/mm3 (0.0-0.4); Eosinophils % 4.5 % (0.1-12.0); Hemoglobin 15.8 g/dL (14.1-18.0); Lymphocytes # 1.5 K/mm3 (0.7-4.5); Lymphocytes % 30.5 % (10-50); Mean Corpuscular HGB Conc 34.3 g/dL (31.8-35.4); Mean Corpuscular Hemoglobin 34.3 pg (27.0-31.2); Mean Corpuscular Volume 100.1 fl (80-94); Mean Platelet Volume 8.5 fl (7.4-10.4); Monocytes # 0.4 K/mm3 (0.1-1.0); Monocytes % 7.8 % (1.7-9.3); Neutrophils # 2.8 K/mm3 (1.8-7.8); Neutrophils % 55.5 % (37.0-80.0); Platelet Count 176 K/mm3 (142-424); Red Cell Distribution Width 13.1 % (11.5-17.5)
[2024-02-10 09:52] LABS: Chloride 105 mmol/L (98-107); Potassium 4.7 mmoL/L (3.5-5.1); Sodium 138 mmol/L (136-145)
[2024-02-10 09:54] LABS: Alanine Aminotransferase 76 U/L (12-78); Alkaline Phosphatase 101 U/L (38-126); Anion Gap 8.7 mEq/L (5-15); Aspartate Amino Transferase 72 U/L (17-59); Bilirubin,Direct 0.4 mg/dl (0.0-0.4); Bilirubin,Indirect 0.1 mg/dL (0.0-0.9); Bilirubin,Total 0.5 mg/dl (0.2-1.3); Bilirubin,Unconjugated 0.1 mg/dL (0.0-1.1); Blood Urea Nitrogen 9 mg/dl (9-20); Carbon Dioxide 29 mmol/L (22.0-30.0); Estimated Glomerular Filt Rate 101 ml/min (>60); GFR (African American) 122 ML/MIN (>60)
[2024-02-10 09:55] LABS: Albumin Level 4.2 g/dl (3.5-5.0); Calcium 9.3 mg/dl (8.4-10.2); Chol/HDL Ratio 1.6 (1-3.5); Cholesterol 117 mg/dl (140-200); Glucose 91 mg/dl (74-100); HDL Cholesterol 73 mg/dl (40-60); Magnesium 1.9 mg/dl (1.6-2.3); Total Protein,Serum 7.1 g/dl (6.3-8.2); Triglycerides 50 mg/dl (30-150); VLDL Cholesterol 10 mg/dL (0-40)
[2024-02-10 10:06] LABS: Direct LDL Cholesterol 49.26 mg/dL (100-129)
[2024-02-10 10:11] LABS: Free T4 (Free Thyroxine) 0.89 ng/dl (0.78-2.19)
[2024-02-10 10:26] LABS: Thyroid Stimulating Hormone 2.77 uIU/mL (0.465-4.68)
== END 2024-02-10 23:59 | disposition home or self-care (01) ==
LOC: LAB 09:05
PROVIDERS: PCP Internal Medicine Adolescent Medicine; Visit Provider Nurse Practitioner
DX: I11.9 Hypertensive heart disease without heart failure (principal); I25.10 Atherosclerotic heart disease of native coronary artery without angina pectoris; I25.84 Coronary atherosclerosis due to calcified coronary lesion; I65.29 Occlusion and stenosis of unspecified carotid artery; E78.5 Hyperlipidemia, unspecified; F17.210 Nicotine dependence, cigarettes, uncomplicated
CPT/HCPCS: 36415; 80048; 80061; 80076; 83735; 84439; 84443; 85025

== ENCOUNTER 2024-12-29 08:26 | Emergency (ER) | payer BC, OTHER, SELFPAY ==
[2024-12-29 08:30] VITALS: BP 135/90; PULSE 83; O2SAT 98
[2024-12-29 08:35] LABS: Coronavirus 19, PCR Not Detected (NotDetected); Influenza B, PCR Not Detected (NotDetected)
[2024-12-29 08:50] VITALS: BP 135/90; PULSE 84; RESP 19; TEMP 36.7; O2SAT 97; BMI 25.0
--- NOTE | 2024-12-29 08:52 | ED_ITS ---
Discharge Plan Disposition Patient Disposition: Home, Self-Care Prescriptions Prescriptions: New ondansetron 4 mg tablet,disintegrating 4 mg PO Q6H PRN (Reason: nausea and vomiting) Qty: 10 0RF No Action hydrochlorothiazide 25 mg tablet 25 mg PO DAILY Qty: 30 5RF clopidogrel [Plavix] 75 mg tablet 75 mg PO DAILY Qty: 90 3RF losartan 100 mg tablet 100 mg PO DAILY Qty: 30 3RF atorvastatin [Lipitor] 20 mg tablet 20 mg PO DAILY Qty: 90 3RF carvedilol [Coreg] 25 mg tablet 50 mg PO BID Qty: 360 3RF Rx Instructions: must administer with a meal/food aspirin [Adult Aspirin Regimen] 81 mg tablet,delayed release (DR/EC) 81 mg PO DAILY Qty: 90 3RF Referrals Follow up/Referrals: Conner Cid MD [Primary Care Provider] - See instructions Activity Restrictions/Add. Instructions Additional Instructions/Restrictions: Call your family doctor to establish care for this visit to the emergency department and schedule follow-up within 48 hours to ensure improvement. If you have any worsening of your condition or any other concerning signs or symptoms, return to the emergency department or your primary care doctor for further evaluation. Zofran as needed for nausea and vomiting. You will be contacted if your diarrhea needs treated. Clinical Impressions Clinical Impression: Influenza A, Vomiting and diarrhea Instructions Patient Instructions: DI for Diarrhea and Traveler's Diarrhea -- Adult, DI for Diarrhea and Traveler's Diarrhea -- Child, DI for Nausea -- Adult, DI for Nausea -- Child Print Language Print Language: Setswana Discharge ED Provider: Ulysses Wynn General Adult HPI General Chief complaint: Nausea/Vomiting/Diarrhea Stated complaint: nausea itchy throat Time Seen by Provider: 12/29/24 08:27 History of Present Illness HPI narrative: Please note that above description of symptoms, in this electronic medical record under categorization of recalled from ER triage doctor by RN are reflective of an initial nursing assessment, however, is not reflective of my full history and physical exam that was personally taken and clarified. Consequentially, this preceding description of symptoms, which may include the patient's categorized chief complaint in the EMR, do not reflect my personal clinical impression, and the ultimate description of history of present illness and patient stated complaints should be deferred to this section of the note. Unless stated otherwise or congruent with this section of the note, additional signs, symptoms, or incongruence should be interpreted as inaccurate with my clinical impression. Related Data Previous Rx's ?Medication ?Instructions ?Recorded clopidogrel 75 mg tablet (Plavix) 75 mg PO DAILY #90 tabs 09/11/23 losartan 100 mg tablet 100 mg PO DAILY #30 tabs 09/24/23 atorvastatin 20 mg tablet (Lipitor) 20 mg PO DAILY Cholesterol #90 tabs 12/20/23 hydrochlorothiazide 25 mg tablet 25 mg PO DAILY #30 tabs 03/11/24 carvedilol 25 mg tablet (Coreg) 50 mg (2 x 25 mg) PO BID #360 tabs 05/11/24 aspirin 81 mg tablet,delayed 81 mg PO DAILY Heart #90 tabs 07/09/24 release (Adult Aspirin Regimen) ondansetron 4 mg disintegrating 4 mg PO Q6H PRN nausea and 12/29/24 tablet vomiting #10 tabs Allergies Allergy/AdvReac Type Severity Reaction Status Date / Time No Known Allergies Allergy Verified 12/29/24 08:53 [facility] Disclaimer: The information contained in this section may have been updated after the patient was seen, as this information can be updated by other users. Medical History Coronary artery calcification Abnormal renal ultrasound Stenosis of carotid artery Renal artery stenosis Tobacco use HLD (hyperlipidemia) Stenosis of carotid artery Carotid bruit History of CVA (cerebrovascular accident) Social History Smoking Status: Current every day smoker tobacco type: cigarettes packs per day: 1 alcohol intake: never current occupational status: other Travel in the last 8 weeks: None Have you lived/traveled outside [place] in past 30 days?: No Contact w/someone who lives/traveled outside [place] past 30 days?: No Exposure to someone with infectious disease in past 14 days?: No Do you have a fever (greater than 100.4 F or 38 C)?: No Have you tested positive for COVID-19: No Exposed to someone with COVID-19 in past 14 days?: No Do you have a sore throat?: No Do you have a cough?: No Do you have any weakness?: No Do you have any diarrhea?: No Are you experiencing any unusual bleeding?: No Do you have any muscle aches/pain?: No Do you have any abdominal pain?: No Are you experiencing loss of taste or smell?: No ROS Obtained: Yes All systems reviewed & no additional complaints except as doc umented Physical Exam General General appearance: alert and in no apparent distress Head Head exam: atraumatic and normocephalic Eye Eye exam: Present normal appearance, PERRL and EOMI Neck Neck exam: Present normal inspection, full ROM and trachea midline Respiratory Respiratory exam: Present normal lung sounds bilaterally; Absent respiratory distress, wheezes, stridor, accessory muscle use or prolonged expiratory phase Cardiovascular Cardiovascular exam: Present regular rate, normal rhythm and other (Pulses equal symmetric in upper and lower extremities) Abdominal Exam Abdominal exam: Present soft; Absent distention, tenderness or pulsatile mass Extremities Exam Extremities exam: Absent edema Neurological Exam Neurological exam: Present alert, oriented X3 and CN II-XII intact; Absent motor sensory deficit Skin Skin exam: Present warm and dry; Absent diaphoresis or erythema Medical Decision Making Medical Records Medical records reviewed: Yes I reviewed the patient's medical records. Screening: Per USPSTF and CDC recommendations, given the prevalence of disease in our region, it is our hospital?s policy to screen for HIV and viral Hepatitis for all patients aged 18 and over and those with ongoing risk factors. Celestine Inquiry Pt receiving controlled substance: No Celestine was queried for this patient: No Vital Signs: 12/29/24 08:30 12/29/24 08:50 12/29/24 09:01 Temperature 98.1 F Temperature Source Oral Pulse Rate 83 81 Pulse Rate [Left Radial] 84 Respiratory Rate 19 Blood Pressure 135/90 114/82 Blood Pressure [Right Arm] 135/90 Blood Pressure Mean [Right Arm] 105 Blood Pressure Source [Right Arm] Automatic Cuff Blood Pressure Position [Right Arm] Sitting 02 Sat by Pulse Oximetry 98 97 97 Oxygen Delivery Method Room Air Room Air Room Air Lab Data Lab Results 12/29/24 08:31: SARS-CoV-2 (PCR) Not detected, Influenza A Untype (PCR) Detected A, Influenza Type B (PCR) Not detected Orders (Tests/Meds): ED MEDICATIONS Discontinued Medications Generic Name Dose Route Start Last Admin Trade Name Freq PRN Reason Stop Dose Admin Ondansetron HCl 4 mg 12/29/24 08:36 12/29/24 09:01 Ondansetron 4mg Odt SL 12/29/24 08:37 4 mg ONCE ONE Administration ORDERS Category Date Time Status HIV Combo Stat Lab 12/29/24 08:52 Ordered Hepatitis C Ab Qual. W/ RFX Stat Lab 12/29/24 08:52 Ordered Rapid PCR Covid and Flu A/B Stat Lab 12/29/24 08:31 Completed Medical Decision Narrative: 54-year-old male presenting with vomiting, diarrhea, pharyngitis. States that symptoms started 4 days prior to this. 4 days ago he started having nausea, vomiting, diarrhea, fever. He has not had a fever in a couple days at this point. States that his vomit is nonbloody, nonbilious, no blood in his diarrhea. It is just nearly water. He has been tolerating his meds, but has not had much p.o. intake other than liquids out of concern that he may vomit them up. No new cough, abdominal pain, chest pain, or any other symptoms on full review of systems History was obtained via conversation with patient. On arrival, patient hemodynamically stable, alert, oriented x4, appropriate, GCS 15, moving all extremities spontaneously, pupils equal and reactive to light. Full physical exam performed and significant for chronically ill-appearing male who is in no acute distress. Nontachycardic, normotensive, nontachypneic, 99% on room air, speaking full sentences. Abdomen is soft. Lungs are clear, cardiac exam with no murmurs gallops rubs or other abnormalities. Differential includes gastritis, gastroenteritis, infectious diarrhea, inflammatory diarrhea, among others. Patient placed on continuous cardiac monitoring and continuous pulse ox with initial blood pressure 135/90, heart rate 83, saturation 98% on room air. Patient was given Zofran and p.o. challenge for symptomatic management and correction of underlying abnormalities. Workup independently interpreted and significant for influenza A positive swab, stool sample sent given numerous contacts with infectious diarrhea. On reevaluation, patient resting comfortably, no acute complaints, able to stool sample. This was sent. Given patient presentation, workup, history, this most likely represents influenza A, likely viral gastroenteritis. Because patient at baseline without signs or symptoms of clinical decompensation, deemed appropriate for discharge. Results were relayed to patient who voiced understanding and were agreeable to outpatient management and follow up. I discussed my clinical impression with patient and answered all questions. At this time, the evidence for any other entities in the differential is insufficient to warrant any further testing or ED observation. This was explained as well. Advisory was given that persistent or worsening symptoms require further evaluation. I confirmed the understanding of this discussion. Load Blocker disclaimer Much of this encounter note is an electronic cattle tester spoken language to printed text. Electronic cattle tester of the spoken language may permit errors. Although I have reviewed the note, some errors may still exist. Critical Care Critical Care Time Critical Care Time: No
[2024-12-29 09:01] VITALS: BP 114/82; PULSE 81; O2SAT 97
[2024-12-29] MEDS: ONDANSETRON 4MG ODT 4 MG SL (09:01)
[2024-12-29 09:15] VITALS: BP 119/88; PULSE 79; O2SAT 96
[2024-12-29 09:30] VITALS: BP 104/78; PULSE 79; O2SAT 98
[2024-12-29 09:30] LABS: Influenza A, PCR Detected (NotDetected)
[2024-12-29 09:49] LABS: Adenovirus F 40/41, stool Not Detected (NotDetected); Astrovirus Not Detected (NotDetected); Campylobacter Not Detected (NotDetected); Clostridium Difficile A/B, PCR Not Detected (NotDetected); Cryptosporidium Not Detected (NotDetected); Cyclospora Cayetanesis Not Detected (NotDetected); Entamoeba histolytica Not Detected (NotDetected); Enteroaggregative E coli Not Detected (NotDetected); Enteropathogenic E coli Not Detected (NotDetected); Enterotoxigenic E coli Not Detected (NotDetected); Giardia lamblia Not Detected (NotDetected); Norovirus Not Detected (NotDetected); Plesimonas Shigalloides, PCR Not Detected (NotDetected); Rotavirus A Not Detected (NotDetected); Salmonella, PCR Not Detected (NotDetected); Sapovirus Not Detected (NotDetected); Shiga-like toxin E coli Not Detected (NotDetected); Shigella Enterovasive E coli Not Detected (NotDetected); Vibrio Cholerae Not Detected (NotDetected); Vibrio, PCR Not Detected (NotDetected); Yersinia Entercolitica, PCR Not Detected (NotDetected)
[2024-12-29 09:52] VITALS: BP 104/78; PULSE 79; RESP 17; TEMP 36.7; O2SAT 98
== END 2024-12-29 09:53 | disposition home or self-care (01) ==
PROVIDERS: Emergency Provider Emergency Medicine; PCP Internal Medicine Adolescent Medicine
DX: J10.1 Influenza due to other identified influenza virus with other respiratory manifestations (principal); R50.9 Fever, unspecified; R11.10 Vomiting, unspecified; R19.7 Diarrhea, unspecified; F17.210 Nicotine dependence, cigarettes, uncomplicated
CPT/HCPCS: 87506; 87636; 99283; Q0162

== ENCOUNTER 2025-05-06 08:21 | Emergency (ER) | payer BC, OTHER, SELFPAY ==
[2025-05-06 08:29] VITALS: BP 180/106; PULSE 82; RESP 16; TEMP 36.6; O2SAT 99; BMI 25.0
--- NOTE | 2025-05-06 08:32 | XR_ITS ---
FINAL REPORT CLINICAL HISTORY: Pain, right hip, FALL 1 MOS AGO FINDINGS: RIGHT HIP Three views were obtained. There is no fracture or dislocation. There are moderate degenerative changes. No soft tissue abnormality is identified. IMPRESSION: Moderate degenerative changes. Reviewed, Interpreted and Dictated by Maury Lawrence MD Transcribed by Lety Galloway Authenticated and . [facility]
--- NOTE | 2025-05-06 08:34 | ED_ITS ---
Discharge Plan Disposition Patient Disposition: Home, Self-Care Prescriptions Prescriptions: No Action clopidogrel [Plavix] 75 mg tablet 75 mg PO DAILY Qty: 90 3RF losartan 100 mg tablet 100 mg PO DAILY Qty: 30 3RF atorvastatin [Lipitor] 20 mg tablet 20 mg PO DAILY Qty: 90 3RF carvedilol [Coreg] 25 mg tablet 50 mg PO BID Qty: 360 3RF Rx Instructions: must administer with a meal/food aspirin [Adult Aspirin Regimen] 81 mg tablet,delayed release (DR/EC) 81 mg PO DAILY Qty: 90 3RF hydrochlorothiazide 25 mg tablet See Rx Instructions .ROUTE .COMPLEX Qty: 90 3RF Dose Instruction: TAKE 1 TABLET BY MOUTH DAILY Rx Instructions: TAKE 1 TABLET BY MOUTH DAILY ondansetron 4 mg tablet,disintegrating 4 mg PO Q6H PRN (Reason: nausea and vomiting) Qty: 10 0RF Referrals Follow up/Referrals: Conner Cid MD [Primary Care Provider, Internal Medicine] - See instructions Activity Restrictions/Add. Instructions Additional Instructions/Restrictions: You can take Tylenol to help with your symptoms. You can use ice packs and heating pads also to help with your symptoms. Continue to walk and use that leg to ensure that it does not get stiff. Follow-up with Dr. Cid as needed. If you develop any new or worsening symptoms, or if you become concerned for your health for any reason, return to the emergency department for evaluation Clinical Impressions Clinical Impression: Acute pain of right hip Print Language Print Language: Bulgarian Discharge ED Provider: Pk Pérez Adult HPI General Chief complaint: Fall Stated complaint: AO-2 months-Pain in R hip, knot on hip Time Seen by Provider: 05/06/25 08:26 History of Present Illness HPI narrative: Jose Manuel Morales is a 55y male with a past medical history of coronary artery disease and renal stents on aspirin and Plavix who presents to the emergency department for complaints of right hip pain. Patient denies any recent traumatic injuries but states over the last month, he has had worsening right lateral hip pain that is worse with walking. He states that the pain worsened l ast night and he started walking with a cane. He denies any recent falls. He denies any numbness or tingling down the leg and states it is isolated to the lateral aspect of his right hip. Related Data Previous Rx's ?Medication ?Instructions ?Recorded clopidogrel 75 mg tablet (Plavix) 75 mg PO DAILY #90 t abs 09/11/23 losartan 100 mg tablet 100 mg PO DAILY #30 tabs 03/12 atorvastatin 20 mg tablet (Lipitor) 20 mg PO DAILY Cho lesterol #90 tabs 12/20/23 carvedilol 25 mg tablet (Coreg) 50 mg (2 x 25 mg) PO B ID #360 tabs 05/11/24 aspirin 81 mg tablet,delayed 81 mg PO DAILY Heart #90 tabs 07/09/24 release (Adult Aspirin Regimen) ondansetron 4 mg disintegrating 4 mg PO Q6H PRN nausea and 12/29/24 tablet vomiting #10 tabs hydrochlorothiazide 25 mg tablet See Rx Instructions . Route 04/05/25 .COMPLEX #90 tabs Allergies Allergy/AdvReac Type Severity Reaction Status Date / Time No Known Allergies Allergy Verified 12/29/24 08:53 [facility] Disclaimer: The information contained in this section may have been updated after the patient was seen, as this information can be updated by other users. Medical History Coronary artery calcification Abnormal renal ultrasound Stenosis of carotid artery Renal artery stenosis Tobacco use HLD (hyperlipidemia) Stenosis of carotid artery Carotid bruit History of CVA (cerebrovascular accident) Social History Smoking Status: Current every day smoker tobacco type: cigarettes packs per day: 1 alcohol intake: never current occupational status: other Travel in the last 8 weeks?: None Have you lived/traveled outside [place] in past 30 days?: No Contact w/someone who lives/traveled outside US past 30 days?: No Exposure to someone with infectious disease in past 14 days?: No Do you have a fever (greater than 100.4 F or 38 C)?: No Have you tested positive for COVID-19?: No Exposed to someone with COVID-19 in past 14 days?: No Do you have a sore throat?: No Do you have a cough?: No Do you have any weakness?: No Do you have any diarrhea?: No Are you experiencing any unusual bleeding?: No Do you have any muscle aches/pain?: No Do you have any abdominal pain?: No Are you experiencing loss of taste or smell?: No ROS Obtained: Yes Systems reviewed as appropriate & no additional complaints except as documented Physical Exam General General appearance: alert and in no apparent distress Head Head exam: atraumatic Eye Eye exam: Present normal appearance ENT ENT exam: Present normal external ear exam Neck Neck exam: Present full ROM Chest Chest inspection: Present symmetric chest wall rise Respiratory Respiratory exam: Present normal lung sounds bilaterally and wheezes; Absent respiratory distress or stridor Cardiovascular Cardiovascular exam: Present regular rate and normal rhythm Abdominal Exam Abdominal exam: Present soft; Absent tenderness or guarding exam: Present deferred Extremities Exam Extremities exam: Present normal inspection and other (Ambulatory using cane upon arrival. Right lower extremity: Tenderness over the lateral aspect of the right hip. No deformity. 2+ DP and PT pulses bilaterally. No color changes. Equal capillary refill less than 2 seconds bilaterally. Sensation grossly intact throughout bilateral lower extremiti) Back Exam Back exam: Present normal inspection Neurological Exam Neurological exam: Present alert and oriented X3 Psychiatric Psychiatric exam: Present normal affect Skin Skin exam: Present warm and dry Medical Decision Making Medical Records Screening: Per USPSTF and CDC recommendations, given the prevalence of disease in our region, it is our hospital?s policy to screen for HIV and viral Hepatitis for all patients aged 18 and over and those with ongoing risk factors. Celestine Inquiry Pt receiving controlled substance: No Vital Signs: 05/06/25 08:29 05/06/25 08:29 05/06/25 08:45 Temperature 97.9 F 97.9 F Temperature Source Oral Pulse Rate 82 65 Pulse Rate [Right Radial] 82 Respiratory Rate 16 16 Blood Pressure 180/106 H 181/96 H Blood Pressure [Right Arm] 180/106 H Blood Pressure Mean [Right Arm] 130 Blood Pressure Source [Right Arm] Automatic Cuff Blood Pressure Position [Right Arm] Sitting 02 Sat by Pulse Oximetry 99 99 98 Oxygen Delivery Method Room Air Room Air Room Air 05/06/25 09:00 05/06/25 09:31 05/06/25 09:49 Temperature 97.9 F Temperature Source Pulse Rate 77 75 76 Pulse Rate [Right Radial] Respiratory Rate 14 Blood Pressure 162/100 H 162/107 H 139/91 H Blood Pressure [Right Arm] Blood Pressure Mean [Right Arm] Blood Pressure Source [Right Arm] Blood Pressure Position [Right Arm] 02 Sat by Pulse Oximetry 97 95 Oxygen Delivery Method Room Air Orders (Tests/Meds): ED MEDICATIONS Discontinued Medications Generic Name Dose Route Start Last Admin Trade Name Pavel PRN Reason Stop Dose Admin Acetaminophen 1,000 mg 05/06/25 08:32 05/06/25 08:52 Acetaminophen 500mg Tab PO 05/06/25 08:33 1,000 mg ONCE ONE Administration Albuterol Sulfate 2 puff 05/06/25 12:00 05/06/25 08:54 Albuterol-Hfa 90mcg/Puff Inhaler 8gm IH 06/05/25 11:59 2 puff Q6RT ABUNDIO Administration Miscellaneous 1 unit 05/06/25 08:40 05/06/25 08:54 Aerochamber/Optihaler MC 05/06/25 08:41 1 unit ONCE ONE Administration Miscellaneous 1 unit 05/06/25 08:45 05/06/25 09:01 Aerochamber/Optihaler MC 05/06/25 08:46 Not Given ONCE ONE ORDERS Category Date Time Status Hip XR right minimum 2 views [XR hip RT 2-3V w/pelvis] Exams 05/06/25 08:32 Completed Stat Medical Decision Narrative: Jose Manuel Morales is a 55y male with a past medical history of coronary artery disease and renal stents on aspirin and Plavix, hypertension, who presents to the emergency department for complaints of right hip pain. Patient denies any recent traumatic injuries but states over the last month, he has had worsening right lateral hip pain that is worse with walking. He states that the pain wo rsened last night and he started walking with a cane. He denies any recent falls. He denies any numbness or tingling down the leg and states it is isolated to the lateral aspect of his right hip. On arrival, patient is hypertensive with a blood pressure 180/106, heart rate within normal limits, afebrile, breathing comfortably on room air with oxygen saturation 99% SpO2. On physical exam, patient does have expiratory wheezing but denies any shortness of breath. Patient states that he has not been diagnosed with COPD, however he does smoke nearly 1 pack of cigarettes daily. He has tenderness over the lateral aspect of the right hip without deformity. He was ambulatory using a cane here in the emergency department. Sensation grossly intact bilateral lower extremities. Pulses intact bilateral lower extremities. No color changes between the lower extremities. Differential diagnosis includes, but is not limited to: Osteoarthritis, fracture, osteopenia/osteoporosis, patient does not describe claudication symptoms in his lower extremities and has reproducible pain on exam to the right lateral hip. CTA abdomen pelvis with runoff was considered, however given patient's pain is reproducible over the bony prominence and he has good pulses and no color changes to the lower extremities, is felt that this is not indicated at this time. Workup in the emergency department includes: Right hip x-rays. Will administer 1 g of Tylenol. Will also give albuterol inhaler for wheezing as patient likely has undiagnosed COPD in the setting of his tobacco use. Laboratory studies were considered, however these are not indicated at this time as they would not change ED management. X-ray imaging was interpreted by me personally. No acute fractures or dislocations. There are degenerative changes within the joint space consistent with arthritis. Given this, is felt that he is appropriate for discharge at this time with plan to follow-up with his primary care physician. Encouraged him to take Tylenol to help with symptoms. Told him to avoid NSAIDs as this can increase his bleeding risk given he is on blood thinners. Also encouraged him to continue ranging the joint to help with stiffness and pain. Encouraged to follow with his primary care physician if symptoms do not improve as he may need physical therapy in the future. Return precautions were given. All questions were answered. He demonstrates understanding and was in agreement this plan. He was also discharged with an inhaler for his wheezing in setting of what is likely COPD. Critical Care Critical Care Time Critical Care Time: No
[2025-05-06 08:45] VITALS: BP 181/96; PULSE 65; O2SAT 98
--- OUTSIDE RECORDS SUMMARY | 2025-05-06 08:50 | XMS_ITS ---
Author Organization Unknown Medications Medication Instructions Effective Dates (start - stop) Status hydrochlorothiazide 12.5 MG / valsartan 160 MG Oral Tablet [id number]:00:00.000+0 0 :00 - Completed atorvastatin 20 MG Oral Tablet 2 [id number]:00:00.000+00 :00 - Completed metoprolol tartrate 50 MG Or al Tablet [id number]:00:00.000+00 :00 - Completed metoprolol tartrate 50 MG Or al Tablet [id number]:00:00.000+00 :00 - Completed metoprolol tartrate 50 MG Or al Tablet [id number]:00:00.000+00 :00 - Completed carvedilol 25 MG Oral Tablet 12-24-26:00:00.000+00 :00 - Completed carvedilol 25 MG Oral Tablet 12-22-06:00:00.000+00 :00 - Completed atorvastatin 20 MG Oral Tablet 2 [id number]:00:00.000+00 :00 - Completed clopidogrel 75 MG Oral Tablet 12-05-02:00:00.000+00 :00 - Completed clopidogrel 75 MG Oral Tablet 10-02-07:00:00.000+00 :00 - Completed losartan potassium 100 MG Or al Tablet [id number]:00:00.000+00 :00 - Completed Patient Care team information Name Category Status Period Participants - - Proposed period not known -
--- OUTSIDE RECORDS SUMMARY | 2025-05-06 08:50 | XMS_ITS | Clinical Summary ---
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 Name Role Phone Conner Cid MD Primary Care Provider + [phone] Social History Tobacco Use Types Packs/Day Years Used Date Smoking Tobacco: Never Assessed Sex and Gender Information Value Date Recorded Sex Assigned at Not on file Legal Sex Male 1:01 PM EDT Gender Identity Not on file Sexual Orientation Not on file Plan of Treatment Health Maintenance Due Date Last Done Comments [facility]-Depression Screening 1969 [facility]-Infant/Child/Adol SDOH Screenings 1969 [facility]- SDOH Screenings 1987 [facility]-Adult SDOH Screenings 1987 [facility]-Hepatitis B Vaccines (1 of 3 - 19+ 3-dose series) 1988 [facility]-DTaP,Tdap,and Td Vaccine s (1 - Tdap) 12/23/1996 12/22/1996 CT Colonography 2014 Colonoscopy 2014 FIT-DNA 2014 FIT 2014 FOBT 2014 Sigmoidoscopy 2014 [facility]-Colorectal Cancer Screening 2014 [facility]-Pneumococcal Vaccine: 50 + Years (1 of 1 - PCV) 2019 [facility]-Zoster Vaccines (1 of 2) 2019 UAF-LXLAY-08 Vaccine (1 - 20 24-25 season) 2024 [facility]-Influenza Vaccine (#1) 2025 HPV Vaccines Aged Out No longer eligi ble based on patient's age to complete this topic [facility]-HIB Vaccines Aged Out No longer e ligible based on patient's age to complete this topic [facility]-Hepatitis A Vaccines Aged Out No longer eligible based on patient's age to complete this topic [facility]-IPV Vaccines Aged Out No longer e ligible based on patient's age to complete this topic [facility]-Rotavirus Vaccines Aged Out No lo nger eligible based on patient's age to complete this topic Insurance [facility] Care Teams Dry Chain Puller Relationship Specialty Start Date End Date Conner Cid MD [address] [place] [address] [place] [id number] PCP - General Internal Medicine 06/21/23
[2025-05-06] MEDS: ACETAMINOPHEN 500MG TAB 1000 MG PO (08:52)
[2025-05-06] MEDS: AEROCHAMBER/OPTIHALER 1 UNIT MC (08:54)
[2025-05-06] MEDS: ALBUTEROL-HFA 90MCG/PUFF INHALER 8GM 2 PUFF IH (08:54)
[2025-05-06 09:00] VITALS: BP 162/100; PULSE 77; O2SAT 97
[2025-05-06 09:31] VITALS: BP 162/107; PULSE 75; O2SAT 95
[2025-05-06 09:49] VITALS: BP 139/91; PULSE 76; RESP 14; TEMP 36.6; O2SAT 99
== END 2025-05-06 09:54 | disposition home or self-care (01) ==
PROVIDERS: Emergency Provider Student in an Organized Health Care Education/Training Program; PCP Internal Medicine Adolescent Medicine
DX: M25.551 Pain in right hip (principal); I10 Essential (primary) hypertension; F17.210 Nicotine dependence, cigarettes, uncomplicated
CPT/HCPCS: 73502; 99284